=== PATIENT | female | born 1970 | race Caucasian/White ===

== ENCOUNTER → 2016-09-12 | Outpatient (CLI) | payer BC, SELFPAY ==
--- NOTE | 2016-09-12 09:15 | US ---
EXAM DESCRIPTION: US THYROID CLINICAL HISTORY: 46 y/o F, THYROID NODULE COMPARISON: January 2016 TECHNIQUE: Grayscale and color Doppler imaging of the thyroid gland was performed. Static images were saved to the patient's medical record. FINDINGS: The right thyroid lobe measures 4.2 x 1.4 x 1.5 cm. The left thyroid lobe measures 4.3 x 1.3 x 1.2 cm. The isthmus measures 4 mm in diameter. Small subcentimeter thyroid cysts and nodules noted. The largest nodule is seen within the lower left thyroid lobe. It measures 7 x 7 x 5 mm. This has remained unchanged when compared to prior exam. IMPRESSION: Stable thyroid nodules when compared to of January 2016. One year followup to establish 2 years stability and a benign etiology. No new suspicious findings. Electronically signed by: Demetri Spencer MD 09/12/2016 09:13
== END ==
LOC: US 08:12
PROVIDERS: ATTEND Family Medicine
DX: E04.2 Nontoxic multinodular goiter (principal)

== ENCOUNTER → 2016-09-12 | Outpatient (CLI) | payer BC | LOC: GMAM 13:34 | PROVIDERS: ATTEND Family Medicine | DX: M25.50 Pain in unspecified joint (principal); E04.2 Nontoxic multinodular goiter ==

== ENCOUNTER → 2017-09-19 | Outpatient (CLI) | payer SELFPAY | END | disposition home or self-care (01) | LOC: GMAM 13:05 | PROVIDERS: ATTEND Family Medicine | DX: Z00.00 Encounter for general adult medical examination without abnormal findings (principal) ==

== ENCOUNTER → 2017-09-26 | Outpatient (CLI) | payer BC, SELFPAY ==
--- NOTE | 2017-09-30 07:50 | US ---
EXAM DESCRIPTION: Thyroid CLINICAL HISTORY: 47 years Female, THYROID NODULE COMPARISON: September 12, 2016 FINDINGS: The right lobe of the thyroid is 5.0 x 1.4 x 1.5 cm and the left lobe is 5.1 x 1.1 x 1.5 cm. The isthmus is 3 mm in thickness. Very slight interval enlargement of the thyroid since previous years study is noted. On the right there is a 3 mm hypoechoic nodule in the posterior mid right lobe. There is a slightly heterogeneous wider than tall isoechoic to slightly hypoechoic 7 mm nodule in the posterior right middle lobe as well. On the left in the lower pole is a wider than tall hypoechoic 7 mm nodule. A 3 mm cyst in the upper pole is present and a mildly hypoechoic 7 mm nodule in the mid thyroid is noted. The overall appearance is very little changed with comparison to prior study with slightly more nodules identified than previously seen. None of these approach 1 cm in size and no further workup at this time is recommended. Continued yearly follow-up and reevaluation is recommended. IMPRESSION: Upper normal thyroid size, slightly more prominent than previously seen six study with bilateral small subcentimeter cysts and nodules persisting and slightly more numerous than previously seen. One-year follow-up to reconfirm stability is recommended. Electronically signed by: Nick Zimmerman MD 09/30/2017 7:48 AM APPLICATION DEFENSE MANAGER
== END ==
LOC: US 09:03
PROVIDERS: ATTEND Family Medicine
DX: E04.2 Nontoxic multinodular goiter (principal)

== ENCOUNTER → 2018-03-27 | Outpatient (CLI) | payer BC | LOC: GMAM 13:15 | PROVIDERS: ATTEND Family Medicine | DX: E04.2 Nontoxic multinodular goiter (principal) ==

== ENCOUNTER → 2018-09-29 | Outpatient (CLI) | payer BC | LOC: GMAM 10:29 | PROVIDERS: ATTEND Family Medicine | DX: E04.2 Nontoxic multinodular goiter (principal) ==

== ENCOUNTER → 2018-10-02 | Outpatient (CLI) | payer BC ==
--- NOTE | 2018-10-02 14:21 | US ---
US THYROID CLINICAL STATEMENT: E04.2. COMPARISON: Ultrasound thyroid gland 09/26/2017. FINDINGS: Size right thyroid lobe: 4.6 x 1.5 x 1.2 cm Size left thyroid lobe: 4.9 x 1.2 x 0.9 cm Size isthmus: 0.3 cm Estimated total number of nodules greater than or equal to 1 cm: None. The 3 mm nodule in the posterior mid right lobe measures 2 mm and is anechoic, consistent with a cyst. The 7 mm nodule in the posterior right mid lobe on the prior study is no longer seen. The 3 mm cyst in the upper pole of the left lobe is stable. The 7 mm hypoechoic solid nodule in the mid left lobe is no longer seen. Nodule 1: Size: 0.7 x 0.7 x 0.5 cm. Stable size. Location: Left Lower Composition: mixed cystic and solid: 1 point. On the prior study, had a more solid appearance. Echogenicity: hypoechoic: 2 points Shape: wider than tall: 0 points Margins: smooth: 0 points Echogenic foci: none: 0 points ACR Total Points: 3; ACR TI-RADS risk category: TR3 - mildly suspicious nodule. The soft tissue around the thyroid gland shows no dominant solid mass or distinct cyst. No parenchymal edema or large calcifications. No overlying skin changes. Normal vascularity. IMPRESSION: 1. Nodule 1: ACR TI-RADS 2017 Category TR3. Recommend: No further follow-up. Recommendations based upon [employer] Best [employer] recommendations and ACR TI-RADS 2017 guidelines. Please see below*. 2. The soft tissue around the thyroid gland is unremarkable. *ACR TI-RADS 2017 Recommendations: TR1: No FNA or follow up TR2: No FNA or follow up TR3: FNA if >/= 2.5 cm, follow up if 1.5 - 2.4 cm in 1, 3, and 5 years TR4: FNA if >/= 1.5 cm, follow up if 1.0 - 1.4 cm in 1, 2, 3, and 5 years TR5: FNA if >/= 1.0 cm, follow up if 0.5 - 0.9 cm every year for 5 years ACR TI-RADS recommends that no more than two nodules with the highest ACR TI-RADS total point should be biopsied and no more than four nodules should be followed. Electronically signed by: Doc Diego MD 10/02/2018 2:19 PM [facility]
--- NOTE | 2018-10-02 20:42 | MAM ---
EXAM DESCRIPTION: 3D Screening BILATERAL : Digital Mammography. CLINICAL HISTORY: 48 years Female SCREENING . No complaints and no family history breast cancer. No childbirth. Hysterectomy 5 years ago. HRT. Lifetime risk of developing breast cancer (Tyrer-Cuzick model)(%): 10.2. COMPARISON: Baseline study at this facility.. No prior reports available. TECHNIQUE: Bilateral CC and MLO projection full-field images, digital tomosynthesis mammographic technique. Bilateral digital 2-D full-field MLO images. CAD not available for tomosynthesis or 2-D images. FINDINGS: The breast parenchymal density pattern is: Scattered areas of fibroglandular density. No skin thickening or nipple retraction. Intramammary lymph node right axillary tail. Bilateral benign type calcifications. 2 regions of focal asymmetry in the left breast, one is at the 200 clock position anterior third upper outer quadrant approximately 4 cm from the nipple. The second is approximately 200 clock position posterior third of the breast 10 cm from the nipple. No new focal, stellate mass or density, focal asymmetry , and no suspicious microcalcifications right breast. IMPRESSION: BI-RADS CATEGORY: 0 - INCOMPLETE- Need additional imaging evaluation. FOLLOW-UP: Recall for additional imaging: Targeted breast ultrasound of the regions of interest in the left breast. Digital diagnostic breast mammography if indicated by ultrasound images. Written communication concerning the IMPRESSION and Follow-up, will be mailed to the patient and referring health care provider. Electronically signed by: Doc Diego MD 10/02/2018 8:40 PM COMMUNITY HEALTH EDUCATOR
== END ==
LOC: MAMMO 09:32
PROVIDERS: ATTEND Family Medicine
DX: Z12.31 Encounter for screening mammogram for malignant neoplasm of breast (principal); E04.2 Nontoxic multinodular goiter

== ENCOUNTER → 2018-10-14 | Outpatient (CLI) | payer BC ==
--- NOTE | 2018-10-14 16:03 | US ---
EXAM DESCRIPTION: Breast,Left: Ultrasound CLINICAL HISTORY: 48 [id number]. 2 regions of focal asymmetry in the left breast. COMPARISON: Digital bilateral screening digital breast tomosynthesis 10/02/2018 TECHNIQUE: Transcutaneous scanning of the left breast utilizing araya-scale and Doppler modes. Scanning performed by the transportation museum helper and observed by Dr. Diego. FINDINGS: Scanning at the left breast at the 1:00 to 3:00 position 4 cm from the nipple. Mostly fatty echotexture with small islands of fibroglandular tissues. No dominant solid mass. Scanning of the left breast more posteriorly from the 2:00 to 5:00 sectors 10 cm from the nipple. Mostly fatty echotexture with small islands of fibroglandular tissues. No dominant solid mass. In both locations, no discrete cysts. No parenchymal edema or large calcifications. No overlying skin changes. Normal vascularity. IMPRESSION: Benign exam. BIRAD CATEGORY: 2 BENIGN FINDINGS. RECOMMENDATIONS: FOLLOW UP: Return to routine digital bilateral mammographic screening, one year interval from September 2018. The FINDINGS and the FOLLOW-UP plan were reviewed in person with the patient after the examination. Written communication explaining the IMPRESSION and FOLLOW-UP will be mailed to the patient and referring care provider. According to the [employer], yearly mammograms are recommended starting at age 40 and continuing as long as a woman is in good health. Any breast change noted on a breast self-exam should be reported promptly to the patient's healthcare provider. Breast MRI is recommended for women with an approximately 20-25% or greater lifetime risk of breast cancer, including women with a strong family history of breast or ovarian cancer and women who have been treated for Hodgkin's disease. A negative mammographic report should not delay tissue diagnosis in patients with significant clinical history or physical findings. Extremely dense breast tissue limits the sensitivity of digital mammography. Electronically signed by: Doc Diego MD 10/14/2018 4:01 PM DIRECTOR MARKET INTELLIGENCE
== END ==
LOC: MAMMO 11:25
PROVIDERS: ATTEND Family Medicine
DX: N63.22 Unspecified lump in the left breast, upper inner quadrant (principal)

== ENCOUNTER → 2019-04-07 | Outpatient (CLI) | payer BC | LOC: GMAM 10:50 | PROVIDERS: ATTEND Family Medicine | DX: E04.2 Nontoxic multinodular goiter (principal); E78.2 Mixed hyperlipidemia; R73.09 Other abnormal glucose ==

== ENCOUNTER → 2020-08-19 | Outpatient (CLI) | payer BC | LOC: GMAM 13:29 | PROVIDERS: ATTEND Family Medicine | DX: R10.11 Right upper quadrant pain (principal) ==

== ENCOUNTER → 2020-08-23 | Outpatient (CLI) | payer BC ==
--- NOTE | 2020-08-25 09:31 | US ---
EXAM DESCRIPTION: Liver: ULTRASOUND. CLINICAL HISTORY: RUQ PN COMPARISON: Abdominal x-ray August 19. TECHNIQUE: Transabdominal scannin-dimensional and Doppler modes. FINDINGS: Gallbladder: normal size, shape, echogenicity; no intraluminal stones or sludge. No fluid around the gallbladder. No wall thickening. 1.9 mm . Non-tender with transducer pressure. Common bile duct: caliber 3.7 mm within normal limits. Liver: normal echogenicity; contour liver capsule smooth where seen. No fluid around the liver. Intrahepatic biliary ducts normal caliber. Doppler hepatopedal flow portal vein. 6 mm. Long axis right lobe 12.4 cm. Pancreas: normal size and echogenicity. Duct not seen. Right kidney: long axis measures 9.2 cm. Volume 111.7 ml. Cortical echogenicity is normal. Cortical thickness is normal no echogenic stones; no hydronephrosis. Aorta proximal: 1.8 cm normal caliber. IMPRESSION: Normal ultrasound of the right upper quadrant of the abdomen. Gallbladder and ducts are negative. No ascites. Electronically signed by: Doc Diego MD 08/25/2020 9:29 AM [facility]
== END ==
LOC: US 14:02
PROVIDERS: ATTEND Family Medicine
DX: R10.11 Right upper quadrant pain (principal)

== ENCOUNTER 2020-09-22 05:33 | Day surgery (SDC) | payer BC ==
[2020-09-22] MEDS ORDERED: LACTATED RINGERS 1,000 ML ONE (06:31)
[2020-09-22] MEDS ORDERED: PROPOFOL 200 MG/20 ML VIAL IV ONE (07:00)
[2020-09-22] MEDS ORDERED: LIDOCAINE 1% 10 ML VIAL INJ ONE (07:00)
--- NOTE | 2020-09-22 09:39 | OP ---
DATE OF PROCEDURE: 09/22/20 PREOPERATIVE DIAGNOSIS: 1. Screening colonoscopy. POSTOPERATIVE DIAGNOSIS: 1. Normal colon. PROCEDURE: 1. Colonoscopy. SURGEON: Nilo Canela MD ANESTHESIA: General, Alek Singer CRNA. FINDINGS: Normal colon. COMPLICATIONS: None. PLAN: Discharge. INDICATION: As stated. PROCEDURE: General anesthesia was induced in the lateral position. Digital rectal exam was normal. Normal tone. No significant hemorrhoids. The colonoscope was inserted and routinely passed all the way to the cecum, which was identified by the ileocecal valve and appendiceal orifice. There was some stool on the wall in the very proximal colon. This was able to be irrigated sufficiently to examine. Upon withdrawal, no polyps were noted throughout any part of the colon. No significant diverticulosis. Mucosal surfaces were normal. The patient tolerated the procedure and was taken to Recovery to be discharged. Recommended 10-year additional screening. #[id number] cc: Nick Martin MD MTDD
[2020-09-22 09:46] VITALS: TEMP 97.2
[2020-09-22 10:57] VITALS: BP 139/92; O2SAT 99
== END 2020-09-22 10:05 | disposition home or self-care (01) ==
LOC: AMB 05:33
PROVIDERS: ATTEND Surgery
DX: Z12.11 Encounter for screening for malignant neoplasm of colon (principal); E11.9 Type 2 diabetes mellitus without complications; Z90.710 Acquired absence of both cervix and uterus; Z79.84 Long term (current) use of oral hypoglycemic drugs; Z79.899 Other long term (current) drug therapy; K59.00 Constipation, unspecified; E78.00 Pure hypercholesterolemia, unspecified; E04.2 Nontoxic multinodular goiter
CPT/HCPCS: 00812; 45378; J3490; J7120